=== PATIENT | male | born 1995 | race Caucasian/White ===

== ENCOUNTER 2017-04-13 14:34 | Emergency (ER) | payer BC ==
[~2017-04-13 14:34] MED LIST: ALBU1AER9; ALBU2SYP9; BUDESUS; MEDLIST; QVRINH80
[2017-04-13 14:53] VITALS: TEMP 36.9
[2017-04-13] MEDS ORDERED: CETI10TA10 PO (14:55)
[2017-04-13] MEDS ORDERED: ALLERGY DROPS (14:55)
[2017-04-13] MEDS ORDERED: OMEP20TA40 PO (14:55)
[2017-04-13] MEDS ORDERED: SODIUM CHLORIDE 0.9% 1000ML 1,000 ML IV STA (15:05)
[2017-04-13] MEDS ORDERED: ONDANSETRON INJ 2 MG/ML 2 ML VIAL IV STA (15:05)
[2017-04-13] MEDS ORDERED: MoRPHine SULFATE 4 MG/ML 1 ML CARP\\VIAL IV STA (15:05)
[2017-04-13 15:23] VITALS: O2SAT 98
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
[2017-04-13 16:48] LABS: ISTAT CREATININE 0.8 mg/dl; ISTAT HEMOGLOBIN 15.3 g/dl (14.0-18.0); ISTAT IONIZED CALCIUM 1.21 mmol/l
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
[2017-04-13] MEDS ORDERED: KETOROLAC TROMETHAMINE 30 MG/ML VIAL IV STA (17:39)
[2017-04-13] MEDS ORDERED: OXYCODONE IR HOME PACK PO STA (18:37)
[2017-04-13] MEDS ORDERED: OXYC1TAB3 PO (18:40)
[2017-04-13 19:05] VITALS: BP 105/68; PULSE 78; O2SAT 99
== END 2017-04-13 19:07 | disposition home or self-care (01) ==
LOC: EDBD 14:34 → C.EDB 14:35
DX: R51 Headache (principal); M54.2 Cervicalgia; S00.81XA Abrasion of other part of head, initial encounter; T14.8 Other injury of unspecified body region; V18.0XXA Pedal cycle driver injured in noncollision transport accident in nontraffic accident, initial encounter; Y92.9 Unspecified place or not applicable

== ENCOUNTER 2017-10-25 02:36 | Emergency (ER) | payer BC, OTHER ==
[~2017-10-25] VITALS: Ht 177.8 cm; Wt 68.4 kg
[~2017-10-25 02:36] MED LIST changes: -ALBU1AER9; -ALBU2SYP9; +ALLERGY DROPS; -BUDESUS; +CETI10TA10 PO; -MEDLIST; +OMEP20TA40 PO; -QVRINH80
[2017-10-25 02:37] VITALS: TEMP 36.4; O2SAT 92; Ht 177.8 cm; Wt 68.4 kg
[2017-10-25 03:25] LABS: BLOOD UREA NITROGEN 13 mg/dl (7-18); CALCIUM 8.5 mg/dl (8.5-10.1); CARBON DIOXIDE 24 mmol/L (21-32); CREATININE 0.77 mg/dl (0.60-1.40); GLUCOSE 88 mg/dl (70-99); POTASSIUM 3.4 mmol/L (3.5-5.1); SODIUM 137 mmol/L (136-145)
[2017-10-25] MEDS ORDERED: LANS30CA12 PO (04:06)
[2017-10-25] MEDS ORDERED: ALBU18002 INH (04:07)
[2017-10-25] MEDS ORDERED: SYMIN/8045 INH (04:08)
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
[2017-10-25 08:31] VITALS: BP 114/45; PULSE 109; O2SAT 97
== END 2017-10-25 08:40 | disposition home or self-care (01) ==
LOC: EDBD 02:36 → C.EDB 02:37
DX: F10.929 Alcohol use, unspecified with intoxication, unspecified (principal); Y90.8 Blood alcohol level of 240 mg/100 ml or more

== ENCOUNTER 2017-12-12 07:42 | Emergency (ER) | payer BC, OTHER ==
[~2017-12-12] VITALS: Ht 180.3 cm; Wt 67.0 kg
[~2017-12-12 07:42] MED LIST changes: +ALBU18002 INH; -ALLERGY DROPS; +LANS30CA12 PO; -OMEP20TA40 PO; +SYMIN/8045 INH
[2017-12-12 07:50] VITALS: Ht 180.3 cm; Wt 67.0 kg
[2017-12-12] MEDS ORDERED: GLUCAGON FOR INJ 1 MG VIAL IV STA (08:00)
[2017-12-12] MEDS ORDERED: PANTOprazole INJ 40 MG in SYRINGE 0 ML IV ONE (08:00)
[2017-12-12] MEDS ORDERED: SODIUM CHLORIDE 0.9% 1000ML 1,000 ML IV STA (08:00)
[2017-12-12] MEDS ORDERED: ONDANSETRON INJ 2 MG/ML 2 ML VIAL IV STA (08:00)
[2017-12-12] MEDS ORDERED: LORAZEPAM 2 MG/ML 1 ML VIAL IV STA (08:00)
[2017-12-12] MEDS ORDERED: INHALER INH (08:08)
--- NOTE | 2017-12-12 08:11 | EMERGENCY ROOM VISIT NOTE ---
History Report prepared by Aurelianoibmarbin: Keven Warner Under the Supervision of: Dr. Jitendra Delatorre D.O. First contact with patient: 07:54 Chief Complaint: VOMITING Stated Complaint: ESPHAGEAL SPASMS,CANT KEEP ANYTHING DOWN History of Present Illness The patient is a 22 year old male who presents to the Emergency Room with complaints of a constant esophageal spasm that began 11 hours ago. Patient states that he is unable to swallow anything and that "spit comes back up". Patient states that he has not used his proton pump inhibitor for the last week. He states that he typically gets esophageal spasms after not using his pump for an extended period of time. Patient states that he tried to use his pump last night but he did not relieve the symptoms. He adds that he is advised to use his pump daily. Patient states that the spasm is located near the very bottom of his esophagus. He states that the last thing he ate was steak. He adds that it does not feel like he has a piece of food stuck in his esophagus. Patient states that he began having esophageal spasms in high school. He states that it was diagnosed by "having to swallow something chalky". He states that the spasms sometimes get better on their own. He states that he had a scope through his nose but does not remember having an esophageal scope. Patient states that he takes Zyrtec daily. Patient denies any nausea or vomiting. Source of History: patient Onset: 11 hours ago Position: other (Esophagus) Timing: constant Modifying Factors (Relieving): other (None) Associated Symptoms: No nausea, No vomiting Review of Systems See HPI for pertinent positives & negatives. A total of 10 systems reviewed and were otherwise negative. Past Medical & Surgical Esophageal Spasms Family History No pertinent family history. Social History Smoking Status: Never Smoker Occupation Status: [employer] student Current/Historical Medications Scheduled Cetirizine Hcl (Zyrtec), 10 MG PO DAILY Lansoprazole (Prevacid), 30 MG PO DAILY [Inhaler], 2 PUFFS INH DAILY Scheduled PRN Albuterol Sulfate (Proair Respiclick), 1 PUFF INH Q4H PRN for SOB/Wheezing Allergies Coded Allergies: No Known Allergies (Unverified , 12/12/17) Physical Exam Vital Signs Date Time Temp Pulse Resp B/P (MAP) Pulse Ox O2 Delivery O2 Flow Rate FiO2 12/12/17 12:09 36.2 79 14 129/85 97 Room Air 12/12/17 11:48 36.4 77 12 138/93 100 Room Air 12/12/17 11:45 82 12 109/92 100 Room Air 12/12/17 11:35 36.5 84 14 127/74 100 Room Air 12/12/17 11:25 60 12 115/68 100 Oxymask 10 12/12/17 11:15 63 12 103/68 100 Oxymask 15 12/12/17 11:08 36.3 69 14 104/61 99 Oxymask 15 12/12/17 09:45 67 16 103/63 99 Room Air 12/12/17 08:30 63 12/12/17 08:28 95 Room Air 12/12/17 08:28 86 18 111/64 96 Room Air 12/12/17 07:50 36.5 75 20 119/86 97 Room Air Physical Exam GENERAL: Patient is awake, alert, and in no acute distress. Patient is uncomfortable and somewhat anxious. EYES: The conjunctivae are clear. The pupils are round and reactive. EARS, NOSE, MOUTH AND THROAT: The nose is without any evidence of any deformity. Mucous membranes are moist tongue is midline NECK: The neck is nontender and supple. RESPIRATORY: Normal respiratory effort is noted there is no evidence of wheezing rhonchi or rales CARDIOVASCULAR: Regular rate and rhythm noted there no murmurs rubs or gallops normal S1 normal S2 GASTROINTESTINAL: The abdomen is soft. Bowel sounds are present in all quadrants. Abdomen is nontender MUSCULOSKELETAL/EXTREMITIES: There is no evidence of gross deformity full range of motion is noted in the hips and shoulders SKIN: There is no obvious evidence of any rash. There are no petechiae, pallor or cyanosis noted. NEUROLOGIC: Patient is awake alert and oriented x3. Medical Decision & Procedures ER Provider Diagnostic Interpretation: Radiology results as stated below per my review and radiologist interpretation: CHEST ONE VIEW PORTABLE CLINICAL HISTORY: 22 years-old Male presenting with EVALUATE RESPIRATORY DISTRESS.DYSPNEA. TECHNIQUE: Portable upright AP view of the chest was obtained. COMPARISON: 04/13/2017. FINDINGS: Cardiomediastinal silhouette normal. No focal opacity. No large effusion or pneumothorax. Osseous structures normal. Upper abdomen normal. IMPRESSION: 1. No acute cardiopulmonary disease. Electronically signed by: Keanu Bermudez M.D. 12/12/2017 8:39 AM Laboratory Results 12/12/17 08:10 Red Blood Count 5.03, Mean Corpuscular Volume 85.7, Mean Corpuscular Hemoglobin 30.4, Mean Corpuscular Hemoglobin Concent 35.5, Mean Platelet Volume 9.3, Neutrophils (%) (Auto) 53.1, Lymphocytes (%) (Auto) 30.1, Monocytes (%) (Auto) 7.6, Eosinophils (%) (Auto) 8.8, Basophils (%) (Auto) 0.1, Neutrophils # (Auto) 3.80, Lymphocytes # (Auto) 2.15, Monocytes # (Auto) 0.54, Eosinophils # (Auto) 0.63, Basophils # (Auto) 0.01 12/12/17 08:10 Test 12/12/17 08:10 White Blood Count 7.15 K/uL (4.8-10.8) Red Blood Count 5.03 M/uL (4.7-6.1) Hemoglobin 15.3 g/dL (14.0-18.0) Hematocrit 43.1 % (42-52) Mean Corpuscular Volume 85.7 fL (80-100) Mean Corpuscular Hemoglobin 30.4 pg (25-34) Mean Corpuscular Hemoglobin Concent 35.5 g/dl (32-36) Platelet Count 202 K/uL (130-400) Mean Platelet Volume 9.3 fL (7.4-10.4) Neutrophils (%) (Auto) 53.1 % Lymphocytes (%) (Auto) 30.1 % Monocytes (%) (Auto) 7.6 % Eosinophils (%) (Auto) 8.8 % Basophils (%) (Auto) 0.1 % Neutrophils # (Auto) 3.80 K/uL (1.4-6.5) Lymphocytes # (Auto) 2.15 K/uL (1.2-3.4) Monocytes # (Auto) 0.54 K/uL (0.11-0.59) Eosinophils # (Auto) 0.63 K/uL (0-0.5) Basophils # (Auto) 0.01 K/uL (0-0.2) RDW Standard Deviation 40.3 fL (36.4-46.3) RDW Coefficient of Variation 12.8 % (11.5-14.5) Immature Granulocyte % (Auto) 0.3 % Immature Granulocyte # (Auto) 0.02 K/uL (0.00-0.02) Prothrombin Time 11.4 SECONDS (9.0-12.0) Prothromb Time International Ratio 1.1 (0.9-1.1) Activated Partial Thromboplast Time 26.0 SECONDS (21.0-31.0) Partial Thromboplastin Ratio 1.0 Anion Gap 5.0 mmol/L (3-11) Est Creatinine Clear Calc Drug Dose 131.8 ml/min Estimated GFR () 145.1 Estimated GFR (Non- 125.2 BUN/Creatinine Ratio 13.6 (10-20) Calcium Level 8.8 mg/dl (8.5-10.1) Total Bilirubin 0.6 mg/dl (0.2-1) Aspartate Amino Transf (AST/SGOT) 16 U/L (15-37) Alanine Aminotransferase (ALT/SGPT) 21 U/L (12-78) Alkaline Phosphatase 58 U/L (45-117) Total Protein 7.5 gm/dl (6.4-8.2) Albumin 3.9 gm/dl (3.4-5.0) Globulin 3.6 gm/dl (2.5-4.0) Albumin/Globulin Ratio 1.1 (0.9-2) Laboratory results per my review. Medications Administered Medications (Trade) Dose Ordered Sig/Nicolas Route Start Time Stop Time Status Last Admin Dose Admin Sodium Chloride 1,000 ml @ 999 mls/hr Q1H1M STAT IV 12/12/17 08:00 12/12/17 09:00 DC 12/12/17 08:11 999 MLS/HR Ondansetron HCl (Zofran Inj) 4 mg NOW STAT IV 12/12/17 08:00 12/12/17 08:03 DC 12/12/17 08:11 4 MG Pantoprazole Sodium 40 mg/ Syringe 10 ml @ 5 mls/min NOW ONCE IV 12/12/17 08:00 12/12/17 08:03 DC 12/12/17 08:44 5 MLS/MIN Lorazepam (Ativan Inj) 0.5 mg NOW STAT IV 12/12/17 08:00 12/12/17 08:03 DC 12/12/17 08:11 0.5 MG Glucagon (Glucagon Inj) 1 mg NOW STAT IV 12/12/17 08:00 12/12/17 08:03 DC 12/12/17 08:12 1 MG Menthol (Nice Terrell) 24 terrell STK-MED ONCE TERRELL 12/12/17 11:57 12/12/17 11:58 DC 12/12/17 11:59 24 TERRELL Acetaminophen (Tylenol Tab) 650 mg STK-MED ONCE .ROUTE 12/12/17 11:57 12/12/17 11:58 DC 12/12/17 11:58 650 MG ED Course 0755: The patient was evaluated in room A10. A complete history and physical examination were performed. 0800: Glucagon 1mg IV, Lorazepam 0.5mg IV, Pantoprazole Sodium 40mg/Syringe 10ml @ 5mls/min IV, Zofran Inj 4mg IV, and NSS 1,000 ml @ 999 mls/hr IV. 0908: Patient is actively gagging. 0918: Upon reevaluation, the patient will taken to the GI Lab. I discussed results and treatment plan with him. He verbalizes agreement and understanding. I spoke with Dr. Amaya of the [facility]. The patient will be evaluated for further management and care. Medical Decision Prior records/ancillary studies reviewed. Triage Nursing notes reviewed. The patient's history was concerning for abdominal pain. Differential diagnosis: Etiologies such as appendicitis, diverticulitis, PUD, biliary pathology, UTI, pancreatitis, obstruction, mesenteric ischemia, aortic pathology, infections, inflammatory bowel disease, renal colic, as well as others were entertained. The patient is a 22-year-old male who has a history of esophageal spasm who presented to the emergency department with dysphagia and epigastric this tenderness. The patient states that he normally takes proton pump inhibitors. He has had problems similar to this for the last few years. The patient appeared to be having difficulty swallowing but was able to tolerate his secretions. His last meal was a steak. He was treated with Ativan and glucagon and Zofran in the emergency department. He was also given a dose of IV Protonix. On subsequent reevaluation he was more comfortable but was still unable to swallow any liquids. For this reason I discussed his case with the on -call fixed income portfolio manager. He is agreed to evaluate patient in the emergency department for further management and disposition. I would wonder if the patient has stricture or even some scarring because of his time with esophageal dysmotility. It is possible he also has a partial foreign body. I discussed this with the patient and he was agreeable. Medication Reconcilliation Current Medication List: was personally reviewed by me Blood Pressure Screening Patient's blood pressure: Elevated blood pressure Blood pressure disposition: Elevated BP felt to be situational Consults Time Called: 911 Consulting Physician: Dr. Amaya - [facility] Returned Call: [phone] I discussed the patient's case with Dr. Amaya. He advised I talk to nurse spring assembler supervisor about calling in the OR team. Impression Primary Impression: Esophageal foreign body Scribe Attestation The scribe's documentation has been prepared under my direction and personally reviewed by me in its entirety. I confirm that the note above accurately reflects all work, treatment, procedures, and medical decision making performed by me. Departure Information Dispostion Being Evaluated By Surgeon Referrals No Doctor, Assigned (PCP) Forms HOME CARE DOCUMENTATION FORM, IMPORTANT VISIT INFORMATION Patient Instructions My [facility] Problem Qualifiers Primary Impression: Esophageal foreign body Encounter type: initial encounter Qualified Codes: T18.108A - Unspecified foreign body in esophagus causing other injury, initial encounter
[2017-12-12 08:18] LABS: BASO % 0.1 %; BASO ABS # 0.01 K/uL (0-0.2); EOS % 8.8 %; EOS ABS # 0.63 K/uL (0-0.5); HEMATOCRIT 43.1 % (42-52); HEMOGLOBIN 15.3 g/dL (14.0-18.0); IG# 0.02 K/uL (0.00-0.02); LYMPH % 30.1 %; LYMPH ABS # 2.15 K/uL (1.2-3.4); MEAN CELL VOLUME 85.7 fL (80-100); MEAN CORPUSCULAR HEMOGLOBIN 30.4 pg (25-34); MEAN CORPUSCULAR HGB CONC 35.5 g/dl (32-36); MEAN PLATELET VOLUME 9.3 fL (7.4-10.4); MONO % 7.6 %; MONO ABS # 0.54 K/uL (0.11-0.59); NEUT % 53.1 %; PLATELET COUNT 202 K/uL (130-400); RED CELL DISTRIBUTION WIDTH CV 12.8 % (11.5-14.5); RED CELL DISTRIBUTION WIDTH SD 40.3 fL (36.4-46.3); WHITE BLOOD COUNT 7.15 K/uL (4.8-10.8)
[2017-12-12 08:25] LABS: INR 1.1 (0.9-1.1)
[2017-12-12 08:35] LABS: ALBUMIN 3.9 gm/dl (3.4-5.0); CALCIUM 8.8 mg/dl (8.5-10.1); CREATININE 0.84 mg/dl (0.60-1.40); POTASSIUM 3.7 mmol/L (3.5-5.1)
[2017-12-12 08:38] LABS: TOTAL PROTEIN 7.5 gm/dl (6.4-8.2)
--- NOTE | 2017-12-12 08:41 | DIAGNOSTIC IMAGING REPORT ---
CHEST ONE VIEW PORTABLE CLINICAL HISTORY: 22 years-old Male presenting with EVALUATE RESPIRATORY DISTRESS.DYSPNEA. TECHNIQUE: Portable upright AP view of the chest was obtained. COMPARISON: 04/13/2017. FINDINGS: Cardiomediastinal silhouette normal. No focal opacity. No large effusion or pneumothorax. Osseous structures normal. Upper abdomen normal. IMPRESSION: 1. No acute cardiopulmonary disease. Electronically signed by: Keanu Bermudez M.D. 12/12/2017 8:39 AM Dictated Date/Time: 12/12/2017 8:38 AM
[2017-12-12 09:45] VITALS: O2SAT 99
--- NOTE | 2017-12-12 09:48 | History and Physical ---
History & Physical Date December 12, 2017. Chief Complaint Dysphagia-? FB History of Present Illness The patient is a 22 year old male with complaints of inability to swallow since last night. Allergies Coded Allergies: No Known Allergies (Unverified , 12/12/17) Home Medications Scheduled Cetirizine Hcl (Zyrtec), 10 MG PO DAILY Lansoprazole (Prevacid), 30 MG PO DAILY [Inhaler], 2 PUFFS INH DAILY Scheduled PRN Albuterol Sulfate (Proair Respiclick), 1 PUFF INH Q4H PRN for SOB/Wheezing Physical Examination Skin: warm/dry Eyes: normal inspection Respiratory/Chest: lungs clear Cardiovascular: regular rate, rhythm Abdomen / GI: normal bowel sounds Neurologic/Psych: no motor/sensory deficits ASA Classification: ASA Class I Plan of Treatment For EGD in OR
[2017-12-12] MEDS ORDERED: LIDOCAINE HCL 2% 2 ML VIAL (20MG/ML) ONE (09:58)
[2017-12-12] MEDS ORDERED: SUCCINYLCHOLINE CHLORIDE 20 MG/ML 10 ML VIAL IV ONE (09:58)
[2017-12-12] MEDS ORDERED: DEXAMETHASONE SOD INJ 4 MG/ML VIAL ONE ×2 (09:58→10:41)
[2017-12-12] MEDS ORDERED: ROCURONIUM BROMIDE 10 MG/ML 5 ML VIAL ONE (09:59)
[2017-12-12] MEDS ORDERED: FENTANYL CITRATE INJ 50 MCG/1 ML 2 ML VIAL ONE (09:59)
[2017-12-12] MEDS ORDERED: ONDANSETRON INJ 2 MG/ML 2 ML VIAL ONE (09:59)
[2017-12-12] MEDS ORDERED: PROPOFOL IV EMULSION 10 MG/ML 20 ML VIAL ONE (09:59)
[2017-12-12] MEDS ORDERED: MIDAZOLAM HCL 1 MG/ML 2ML VIAL ONE (09:59)
--- NOTE | 2017-12-12 10:58 | GI REPORT ---
Patient Name: Kayden Joya Procedure Date: 12/12/2017 10:29 AM Date of : 1995 Admit Type: Emergency Department Age: 22 Gender: Male Attending MD: Phong Amaya MD Procedure: Upper GI endoscopy Providers: Phong Amaya MD Referring MD: Jitendra Delatorre Indications: Dysphagia Medicines: General Anesthesia Complications: No immediate complications. Estimated Blood Loss: Estimated blood loss was minimal. Procedure: Pre-Anesthesia Assessment: - Prior to the procedure, a History and Physical was performed, and patient medications, allergies and sensitivities were reviewed. The patient's tolerance of previous anesthesia was reviewed. - The risks and benefits of the procedure and the sedation options and risks were discussed with the patient. All questions were answered and informed consent was obtained. After obtaining informed consent, the endoscope was passed under direct vision. Throughout the procedure, the patient's blood pressure, pulse, and oxygen saturations were monitored continuously.The upper GI endoscopy was accomplished without difficulty. The patient tolerated the procedure well. The Scope was introduced through the mouth, and advanced to the second part of duodenum. Findings: Mucosal changes including ringed esophagus, feline appearance and stenosis were found in the entire esophagus. Biopsies were taken with a cold forceps for histology. Estimated blood loss was minimal. Food was found in the lower third of the esophagus. Removal of food was accomplished. A benign-appearing, intrinsic moderately severe stenosis was found and was traversed. A guidewire was placed and the scope was withdrawn. Dilation was performed with a Savary dilator with no resistance at 42 Fr. A guidewire was placed and the scope was withdrawn. Dilation was performed with a Savary dilator with no resistance at 45 Fr. The entire examined stomach was normal. The examined duodenum was normal. Impression: - Esophageal mucosal changes suggestive of eosinophilic esophagitis. Biopsied. - Food in the lower third of the esophagus. Removal was successful. - Benign-appearing esophageal stricture. Dilated. - Normal stomach. - Normal examined duodenum. Recommendation: - Discharge patient to home (ambulatory). - Continue present medications. - Await pathology results. - Return to GI office at appointment to be scheduled. Phong Amaya M.D. Phong Amaya MD 12/12/2017 10:57:50 AM This report has been signed electronically. Note Initiated On: 12/12/2017 10:29 AM Number of Addenda: 0 I attest to the content of the Intraoperative Record and orders documented therein, exceptions below {[id number]}
[2017-12-12] MEDS ORDERED: ATROPINE SULFATE 0.1 MG/ML 5ML SYR IV PRN (11:15)
[2017-12-12] MEDS ORDERED: FENTANYL CITRATE INJ 50 MCG/1 ML 2 ML VIAL IV PRN (11:15)
[2017-12-12] MEDS ORDERED: EpHEDrine SULFATE INJ 50 MG/ML AMP IV PRN (11:15)
[2017-12-12] MEDS ORDERED: ONDANSETRON INJ 2 MG/ML 2 ML VIAL IV PRN (11:15)
--- NOTE | 2017-12-12 11:18 | Discharge Instructions ---
Endoscopy Patient Instructions Date / Procedure(s) Performed December 12, 2017. EGD Allergy Information Coded Allergies: No Known Allergies (Unverified , 12/12/17) Discharge Date / Findings December 12, 2017. esophageal FB, EoE-Bx, stricture dilated Medication Instructions Restart Stopped Medication(s): resume meds Reported Home Medications Medications Dose Route/Sig Max Daily Dose Days Date Category Dose Instructions [Inhaler] 2 Puffs INH DAILY 12/12/17 Reported NEW INHALER PRESCRIBED TO REPLACE QVAR & ALBUTEROL. STILL GETS ALBUTEROL FILLED IN CASE OF EMERGENCY. PT UNSURE OF NAME, PHARMACY NOT OPEN YET TODAY Proair Respiclick (Albuterol Sulfate) 108 Mcg/Act Aer 1 Puff INH Q4H PRN 10/25/17 Reported Prevacid (Lansoprazole) 30 Mg Capcr 30 Mg PO DAILY 10/25/17 Reported Zyrtec (Cetirizine Hcl) 10 Mg Tab 10 Mg PO DAILY 04/13/17 Reported Provider Instructions Activity Restrictions - No exercising or heavy lifting for 24 hours. - Do not drink alcohol the day of the procedure. - Do not drive a car or operate machinery until the day after the procedure. - Do not make any important decisions or sign important papers in 24 hours after the procedure. Following Day: - Return to full activity which may include returning to work/school. Diet Start your diet with liquids and light foods (jello, soup, juice, toast). Then eat your usual diet if not nauseated. Treatment For Common After Affects For mild abdominal pain, bloating, or excessive gas: - Rest - Eat lightly - Lie on right side Follow-Up Information Follow-up with as scheduled Anesthesia Information What You Should Know You have had a procedure that required some medicine to reduce anxiety and discomfort. This treatment is called moderate sedation. After receiving the treatment, you may be sleepy, but you will be able to breathe on your own. The effects of the treatment may last for several hours. Follow these instructions along with Activity/Diet recommendations noted above: * Do NOT do anything where dizziness or clumsiness would be dangerous. * Rest quietly at home today, then you can be up and about tomorrow. * Have a responsible person stay with you the rest of today. * You may have had an I.V. today. If so, you may take the dressing off later today. Recommendations Call your doctor if: * Trouble breathing * Continuous vomiting for more than 24 hours * Temperature above 101 degrees * Severe abdominal pain or bloating * Pain not relieved by pain medicine ordered * There is increased drainage or redness from any incision * A large amount of rectal bleeding greater than 2-3 tablespoons. (If you had a polyp/s removed or have hemorrhoids, a small amount of blood - from the rectum is to be expected.) * You have any unanswered questions or concerns. IN THE EVENT OF A SERIOUS EMERGENCY, GO TO THE NEAREST EMERGENCY ROOM Your discharge instructions were prepared by provider Phong Amaya. Patient Instructions Signature Page Kayden Joya Patient (or Guardian) Signature/Date: I have read and understand the instructions given to me by my caregivers. Caregiver/RN/Doctor Signature/Date: The above-named patient and/or guardian has received patient instructions on this date. + Original Patient Signature Page (only) stays with chart. Please make copy for patient.
[2017-12-12 11:48] VITALS: BP 138/93; PULSE 77; TEMP 36.4; O2SAT 100
[2017-12-12] MEDS ORDERED: NURSING VERBAL MED ORDER ONE (11:54)
[2017-12-12] MEDS ORDERED: COUGH DROP (SUGAR FREE) LOZ 24 LOZ/1 BOX LOZ ONE (11:57)
[2017-12-12] MEDS ORDERED: ACETAMINOPHEN 325 MG TAB ONE (11:57)
[2017-12-12 12:09] VITALS: BP 129/85; PULSE 79; TEMP 36.2; O2SAT 97
--- NOTE | 2017-12-12 12:18 | Anesthesiology Progress Note ---
Anesthesia Post Op Note Date & Time December 12, 2017 at 12:18 Vital Signs Pain Intensity: 3 Vital Signs Past 12 Hours Date Time Temp Pulse Resp B/P (MAP) Pulse Ox O2 Delivery O2 Flow Rate FiO2 12/12/17 12:09 36.2 79 14 129/85 97 Room Air 12/12/17 11:48 36.4 77 12 138/93 100 Room Air 12/12/17 11:45 82 12 109/92 100 Room Air 12/12/17 11:35 36.5 84 14 127/74 100 Room Air 12/12/17 11:25 60 12 115/68 100 Oxymask 10 12/12/17 11:15 63 12 103/68 100 Oxymask 15 12/12/17 11:08 36.3 69 14 104/61 99 Oxymask 15 12/12/17 09:45 67 16 103/63 99 Room Air 12/12/17 08:30 63 12/12/17 08:28 95 Room Air 12/12/17 08:28 86 18 111/64 96 Room Air 12/12/17 07:50 36.5 75 20 119/86 97 Room Air Notes Mental Status: alert / awake / arousable, participated in evaluation Pt Amnestic to Procedure: Yes Nausea / Vomiting: adequately controlled Pain: adequately controlled Airway Patency, RR, SpO2: stable & adequate BP & HR: stable & adequate Hydration State: stable & adequate Anesthetic Complications: no major complications apparent
== END 2017-12-12 10:01 | disposition still patient (30) ==
LOC: C.EDB 07:43 → C.EDA 10:01
DX: R13.10 Dysphagia, unspecified (principal); K22.2 Esophageal obstruction; J45.909 Unspecified asthma, uncomplicated; Z79.899 Other long term (current) drug therapy